=== PATIENT | female | born 1945 | race Caucasian/White ===

== ENCOUNTER → 2024-06-30 09:53 | Outpatient (REF) | payer MEDICARE, OTHER, SELFPAY | LOC: RCS 09:53 | PROVIDERS: ATTENDING PHYSICIAN Student in an Organized Health Care Education/Training Program | DX: R07.89 Other chest pain (principal) | CPT/HCPCS: 93017 ==

== ENCOUNTER → 2024-07-15 11:57 | Outpatient (REF) | payer MEDICARE, OTHER, SELFPAY | LOC: WDC 11:57 | PROVIDERS: ATTENDING PHYSICIAN Student in an Organized Health Care Education/Training Program | DX: Z12.31 Encounter for screening mammogram for malignant neoplasm of breast (principal) | CPT/HCPCS: 77063; 77067 ==

== ENCOUNTER 2025-05-26 13:35 | Outpatient (RCR) | payer MEDICARE, OTHER, SELFPAY ==
[2025-05-26 13:45] VITALS: BP 135/70
[2025-05-26] MEDS: INJECTAFER 265 MG IV (13:54)
== END 2025-05-27 09:48 | disposition home or self-care (01) ==
LOC: OID 13:35
PROVIDERS: ATTENDING PHYSICIAN Student in an Organized Health Care Education/Training Program
DX: D50.9 Iron deficiency anemia, unspecified (principal)
CPT/HCPCS: 96365; J1439

== ENCOUNTER 2025-06-02 14:23 | Outpatient (RCR) | payer MEDICARE, OTHER, SELFPAY ==
[2025-06-02 14:30] VITALS: BP 130/61
[2025-06-02] MEDS: INJECTAFER 265 MG IV (14:43)
[2025-06-02 15:20] VITALS: BP 120/50
== END 2025-06-03 09:51 | disposition home or self-care (01) ==
LOC: OID 14:23
PROVIDERS: ATTENDING PHYSICIAN Student in an Organized Health Care Education/Training Program
DX: D50.9 Iron deficiency anemia, unspecified (principal)
CPT/HCPCS: 96365; J1439

== ENCOUNTER 2025-07-19 06:38 | Day surgery (SDC) | payer MEDICARE, OTHER, SELFPAY ==
[2025-07-19 08:07] LABS: Glucose - Point of Care 180 mg/dl (70-99)
== END 2025-07-19 10:39 | disposition home or self-care (01) ==
LOC: GI 06:38
PROVIDERS: ATTENDING PHYSICIAN Internal Medicine Gastroenterology
DX: Z12.11 Encounter for screening for malignant neoplasm of colon (principal); D50.9 Iron deficiency anemia, unspecified; R12 Heartburn; K22.89 Other specified disease of esophagus; K44.9 Diaphragmatic hernia without obstruction or gangrene; K57.30 Diverticulosis of large intestine without perforation or abscess without bleeding; K63.5 Polyp of colon; K20.90 Esophagitis, unspecified without bleeding; Z86.0100 Personal history of colon polyps, unspecified
CPT/HCPCS: 43239; 45380; 82962; 88305